=== PATIENT | male | born 2005 | race Hispanic/Latino ===

== ENCOUNTER 2024-08-25 07:56 | Inpatient (IN) | payer OTHER ==
[~2024-08-25] VITALS: Ht 172.7 cm; Wt 73.0 kg
[2024-08-25 08:55] LABS: PLATELET COUNT, AUTOMATED 243 10^3/uL (150-450)
[2024-08-25 09:15] LABS: AMPHETAMINES LEVEL URINE NEGATIVE (NEGATIVE)
[2024-08-25 09:16] LABS: BARBITURATES URINE NEGATIVE (NEGATIVE); BENZODIAZEPINES URINE NEGATIVE (NEGATIVE); CANNABINOIDS URINE NEGATIVE (NEGATIVE); COCAINE METABOLITE URINE NEGATIVE (NEGATIVE); METHADONE URINE NEGATIVE (NEGATIVE); OPIATES URINE NEGATIVE (NEGATIVE); PHENCYCLIDINE URINE NEGATIVE (NEGATIVE)
[2024-08-25 09:18] LABS: ETHYL ALCOHOL (ETHANOL) < 0.003 % (0.000-0.010)
[2024-08-25 09:20] LABS: ALT/SGPT 39 U/L (7.0-40); AST/SGOT 141 U/L (<34); CALCIUM LEVEL 9.9 MG/DL (8.5-10.1); CARBON DIOXIDE LEVEL 25 MMOL/L (20-31); CHLORIDE LEVEL 102 MMOL/L (98-107); CREATININE FOR GFR 0.81 MG/DL (0.70-1.30); GLOMERULAR FILTRATION RATE > 90.0 (>60); POTASSIUM SERUM 3.7 MMOL/L (3.5-5.1); SALICYLATE LEVEL < 3.0 MG/DL (<30); SODIUM LEVEL 142 MMOL/L (136-145)
[2024-08-25] MEDS ORDERED: HOME MED LIST COMPLETE! XX SCH (09:25)
[2024-08-25] MEDS ORDERED: IBUPROFEN 400 MG TAB PO PRN (13:00)
[2024-08-25] MEDS ORDERED: MOM 30 ML SUSPENSION UDC PO PRN (13:00)
[2024-08-25] MEDS ORDERED: ACETAMINOPHEN 325 MG TAB PO PRN (13:00)
[2024-08-25] MEDS ORDERED: MAALOX 30 ML SUSP *UDC PO PRN (13:00)
[2024-08-25 14:11] VITALS: BP 115/56; TEMP 98.7; O2SAT 100
[2024-08-25 14:23] VITALS: BP 115/56
[2024-08-25 21:47] VITALS: BP 109/53
[2024-08-26 06:10] VITALS: BP 113/58; TEMP 97.5; O2SAT 100
[2024-08-26 08:00] VITALS: BP 113/58
[2024-08-26] MEDS: NICOTINE 14 MG/24 HR TRANSDERMAL TD SCH (08:53)
[2024-08-26] MEDS: ESCITALOPRAM OXALATE 5 MG TABLET PO ONE (10:36)
[2024-08-26 14:54] VITALS: BP 133/66; TEMP 98; O2SAT 98
[2024-08-27 06:23] VITALS: BP 116/54; TEMP 97.6
[2024-08-27 08:00] VITALS: BP 116/54
[2024-08-27] MEDS: ESCITALOPRAM OXALATE 5 MG TABLET PO SCH (09:06)
[2024-08-27 15:18] VITALS: BP 124/59; TEMP 98.8; O2SAT 98
[2024-08-27 16:00] VITALS: BP 124/59
[2024-08-28 06:10] VITALS: BP 105/59; TEMP 97.9; O2SAT 100
[2024-08-28 14:00] VITALS: BP 112/67; TEMP 97.7
[2024-08-29 14:30] VITALS: BP 123/62; TEMP 98.1; O2SAT 100
[2024-08-29] MEDS: traZODone 50 MG TAB PO PRN (19:57)
[2024-08-30 06:07] VITALS: BP 113/58; TEMP 98.3; O2SAT 99
[2024-08-30] MEDS ORDERED: TRAZ-252 PO (09:34)
[2024-08-30] MEDS ORDERED: LEXA5TAB13 PO (09:34)
== END 2024-08-30 11:54 | disposition home or self-care (01) | DRG 885 ==
LOC: M ED 07:56 → M ED INP 12:56 → M PSY 14:06
PROVIDERS: ADMIT General Practice; ATTEND General Practice
DX: F32.1 Major depressive disorder, single episode, moderate (principal); R45.851 Suicidal ideations; F17.200 Nicotine dependence, unspecified, uncomplicated; F10.20 Alcohol dependence, uncomplicated